=== PATIENT | male | born 1950 | race Caucasian/White ===

== ENCOUNTER → 2017-12-07 | Outpatient (CLI) | payer MEDICARE, BC ==
[2017-12-07 17:19] LABS: HCT 42.3 % (39.0-53.0); HGB 13.7 gm/dL (13.0-17.5); MCHC 32.4 g/dL (31.0-37.0); MCV 95.5 fL (80.0-100.0); Mean Platelet Volume 8.3; Platelet Count 188 k/uL (150-450); RBC 4.43 m/uL (4.30-5.90); WBC 11.5 k/uL (3.8-10.6)
[2017-12-07 17:26] LABS: ALT 45 U/L (21-72); AST 27 U/L (17-59); Albumin 3.7 g/dL (3.5-5.0); Alkaline Phosphatase 90 U/L (38-126); Anion Gap 6 mmol/L; Blood Urea Nitrogen 20 mg/dL (9-20); Calcium 9.5 mg/dL (8.4-10.2); Carbon Dioxide 29 mmol/L (22-30); Chloride 106 mmol/L (98-107); Glucose 73 mg/dL (74-99); Potassium 4.6 mmol/L (3.5-5.1); Sodium 141 mmol/L (137-145); Total Bilirubin 0.5 mg/dL (0.2-1.3); Total Protein 6.6 g/dL (6.3-8.2)
[2017-12-07 18:54] LABS: Appearance,Urine Clear (Clear); Bilirubin,Urine Negative (Negative); Blood,Urine Negative (Negative); Color,Urine Yellow; Glucose,Urine (UA) Negative (Negative); Ketones,Urine Negative (Negative); Leukocyte Esterase,Urine Negative (Negative); Nitrite,Urine Negative (Negative); Protein,Urine Negative (Negative); Specific Gravity,Urine 1.017 (1.001-1.035); Urobilinogen,Urine <2.0 mg/dL (<2.0)
--- NOTE | 2017-12-07 19:13 | CT ---
EXAMINATION TYPE: CT abdomen pelvis w con DATE OF EXAM: 12/07/2017 COMPARISON: NONE HISTORY: RIGHT FLANK PAIN X10 DAYS. CT DLP: 1118 mGycm Automated exposure control for dose reduction was used. TECHNIQUE: Helical acquisition of images was performed from the lung bases through the pelvis. CONTRAST: Performed with Oral Contrast and with IV Contrast, patient injected with 100 mL of Omnipaque 300. FINDINGS: LUNG BASES: No significant abnormality is appreciated. LIVER/GB: No significant abnormality is appreciated. Gallbladder is unremarkable without evidence of cholelithiasis. PANCREAS: No ductal dilatation. Pancreatic parenchyma is unremarkable. SPLEEN: No splenomegaly. Low-density splenic lesion is 7 mm and too small to accurately characterize on series 3 image 13. This could represent a cyst, lymphangioma or hemangioma. ADRENALS: Symmetric without nodularity. KIDNEYS: Bilateral cortical renal cysts and some smaller lesions that are too small to accurately adolfo racterize measure up to 3.6 cm on the right and 2.1 cm on the left. No evidence of hydronephrosis. Mi ld bilateral nonspecific perinephric fat stranding is noted. FREE AIR: No free air is visualized. URINARY BLADDER: Small posterior lateral left diverticulum is incidentally noted. PELVIC ADENOPATHY: No greater than 1 cm short axis lymph nodes are seen within the abdomen or pelvis . Few prominent nonspecific external chain iliac lymph nodes are seen bilaterally. These measure up t o 8 mm on the right and 7 mm on the left on series 3 image 70 and 65 respectively. OSSEOUS STRUCTURES: Moderate multilevel degenerative changes of the visualized thoracolumbar spine a re noted. BOWEL: There is a small hiatal hernia noted. Appendix is within normal limits of size. No terminal i gifford wall thickening. No evidence of bowel obstruction or bowel dilatation. IMPRESSION: 1. NO EVIDENCE OF HYDRONEPHROSIS. NO ACUTE FINDING TO CORRELATE WITH THE PATIENT'S RIGHT FLANK PAIN. 2. PROMINENT NONSPECIFIC BILATERAL EXTERNAL ILIAC CHAIN LYMPH NODES. SHORT-TERM CT COULD BE PERFORMED IN 3 MONTHS TO EVALUATE FOR INTERVAL GROWTH/RESOLUTION. 3. BILATERAL RENAL CYSTS. A Yellow message has been communicated to Enrique Rosado MD via the [employer] system on 12/07/2017 7:10 PM, Message ID [id number].
== END | disposition home or self-care (01) ==
LOC: RADCTMAIN 16:50
PROVIDERS: ATTEND Internal Medicine Critical Care Medicine
DX: Q61.02 Congenital multiple renal cysts (principal)
CPT/HCPCS: 80053; 85027; 81003; 74177; 36415; Q9967; 71046; 99214